=== PATIENT | male | born 1970 | race Caucasian/White ===

== ENCOUNTER → 2024-01-24 | Outpatient (CLI) | payer BC, SELFPAY ==
--- NOTE | 2024-01-24 10:27 | EKG12_ITS ---
Test Reason : PREOP Blood Pressure : / mmHG Vent. Rate : 067 BPM Atrial Rate : 067 BPM P-R Int : 140 ms QRS Dur : 090 ms QT Int : 398 ms P-R-T Axes : 057 -26 055 degrees QTc Int : 420 ms Normal sinus rhythm Normal ECG Confirmed by PHILIP DHALIWAL, SNEHAL ([id number]), editor news JUAN ALBERTO SAAVEDRA ([id number]) on 01/30/2024 10:03:03 AM Referred By: Kitty Casey Confirmed By:NAHOMI PALACIOS MD
[2024-01-24 11:02] LABS: Absolute Lymphocyte Count 2.07 X10^3/uL (0.83-4.51); Absolute Neutrophil Count 3.4 X10^3/uL (2.0-7.7); Basophil# 0.09 X10^3/uL; Basophil% 1.4 % (0-1); Eosinophil# 0.23 X10^3/uL; Eosinophils% 3.5 % (0-5); Hematocrit 45.8 % (40-54); Hemoglobin 15.3 g/dL (13.0-16.5); Lymphocyte # 2.07 X10^3/ul (0.83-4.51); Lymphocyte % 31.9 % (19-41); Mean Corp Hgb Conc 33.4 g/dL (32-36); Mean Corpuscular Hgb 29.8 pg (27.0-32.0); Mean Corpuscular Volume 89.3 fL (80-94); Mean Platelet Vol. 10.2 fl (6.2-12.0); Monocyte# 0.65 X10^3/uL; NRBC Flagged by Analyzer 0 % (0-5); Neutrophil # 3.41 X10^3/uL (2.7-7.7); Neutrophil % 52.7 % (47-70); Platelet Count 256 K/mm3 (150-450); RBC Distribution Width CV 12.1 % (11.6-14.6); RBC Distribution Width SD 39.2 fl (35.1-43.9); Red Blood Count 5.13 M/mm3 (4.6-6.2); White Blood Count 6.5 K/mm3 (4.4-11.0)
[2024-01-24 11:43] LABS: Anion Gap 3 (5-15); BUN 15 mg/dL (7-18); Calcium,Total 9.2 mg/dL (8.5-10.1); Chloride 105 mmol/L (98-107); Creatinine, Serum 1.15 mg/dL (0.70-1.30); EST Glomerular Filtration Rate 70 mL/min (>60); Est Glom Filt Rate - Afr Amer 85 mL/min (>60); Glucose 103 mg/dL (74-106); Potassium 4.4 mmol/L (3.5-5.1); Sodium Level 138 mmol/L (136-145)
--- OUTSIDE RECORDS SUMMARY | 2024-01-24 18:52 | XMS RPT_ITS | CCD ---
Author Name Unknown Address [facility] [place] [address] Organization [facility] Care Team Providers Care Toxicology Supervisor Name Role Phone Aniceto Conte MD Primary Care Provider ANICETO CONTE Primary Care Unavailable DALTON EPSTEIN Referring Unavailable ANICETO CONTE Referring Unavailable ANICETO CONTE Primary Care Unavailable DALTON EPSTEIN Attending Unavailable Medications Completed/Discontinued Medications Medication Drug Class(es) Dates Sig (Normalized) Sig (Original) halobetasol propionate 0.0005 mg/mg topical ointment (1 source) Corticosteroid Start: 05-18-2023 halobetasol propionate (ULTRAVATE) 0.05 % ointment Indications: Psoriasis Apply to affected area twice daily. 50 g 0 05/18/2023 Active Problems Active Problems Problem Classification Problem Date Documented Da te Episodic/Chronic Immunizations and screening for infectious disease (3 sources) Patient encounter status; Translations: [Encounter for immunization] Onset: 05-18-2023 Episodic Other connective tissue disease (1 source) Ganglion cyst; Translations: [Ganglion, unspecified site] Episodic Other connective tissue disease (1 source) Ganglion, unspecified site; Translations: [Ganglion cyst] Onset: 05-18-2023 Episodic Other inflammatory condition of skin (2 sources) Psoriasis; Translations: [Psoriasis, unspecified] Onset: 05-14-2011 Chronic Other inflammatory condition of skin (1 source) Psoriasis, unspecified; Translations: [Psoriasis] Onset: 11-23-2021 Chronic Other screening for suspected conditions (not mental disorders or infectious disease) (1 source) Encounter for screening for malignant neoplasm of colon; Translations: [Screening for colon cancer] Onset: 05-18-2023 Episodic Past or Other Problems Problem Classification Problem Date Documented Da te Episodic/Chronic Calculus of urinary tract (1 source) Kidney stone; Translations: [Calculus of kidney] Onset: 05-14-2011 11-23-2021 Episodic Residual codes; unclassified (1 source) Family history of ischemic heart disease; Translations: [Family history of ischemic heart disease and other diseases of the circulatory system] Onset: 05-14-2011 05-14-2011 Episodic Residual codes; unclassified (1 source) Tobacco use and exposure - finding; Translations: [Tobacco use] Onset: 05-14-2011 05-11-2018 Episodic Results Test Name Value Interpretation Reference Range Facil ity Vital Signs Date Time Vital Sign Value Performing Clinician Dennis danielle 05-18-2023 11:02-0400 Body height 178.5 cm Dalton Epstein APRN.YESENIA Work Phone: [facility] 05-18-2023 11:02-0400 Body weight 111.13 kg Dalton Epstein APRN.YESENIA Work Phone: [facility] 05-18-2023 11:02-0400 Diastolic blood pressure 84 mm[Hg] Dalton Epstein APRN.[facility] Work Phone: [facility] 05-18-2023 11:02-0400 Heart rate 71 /min Dalton Epstein APRN.[facility] Work Phone: [facility] 05-18-2023 11:02-0400 Respiratory rate 16 /min Dalton Epstein APRN.[facility] Work Phone: [facility] 05-18-2023 11:02-0400 SaO2% (BldA) [Mass fraction] 95 % Dalton Epstein [employer]ARD [employer]OR [employer].[facility] Work Phone: [facility] 05-18-2023 11:02-0400 Systolic blood pressure 128 mm[Hg] Dalton Epstein [employer]ARD [employer] Work Phone: [facility] Encounters Encounter Date Encounter Type Care Provider Facility Start: 05-18-2023 Encounter for noa kurtz adult medical examination without abnormal findings ANICETO CONTE [facility] Start: 05-18-2023 End: 05-19-2023 ambulatory ANICETO CONTE Facility:[facility] Start: 05-18-2023 End: 05-18-2023 Patient encounter procedure Dalton Epstein APRN.[facility] Work Phone: [facility] Plan of Treatment Date Care Activity Detail Author Start: 05-18-2033 Urine microalbumin profile DTA P,TDAP,TD (3 - Td or Tdap) [facility] Start: 05-18-2028 LIPID SCREEN LIPID SCREEN [facility] Start: 05-18-2026 DIABETES SCREEN DIABETES SCREEN [facility] Start: 05-18-2024 COVID-19 VACCINE (#1) COVID-19 VACCI NE (#1) [facility] Immunizations Immunization Date Immunization Notes Care Provider Fa cility 05-18-2023 tetanus toxoid, redu eda diphtheria toxoid, and acellular pertussis vaccine, adsorbed Dalton Haagen [employer].[facility] Work Phone: [facility] 08-28-2018 influenza, seasonal, injectable Dalton Haagen [employer]BOARD [employer]OR TE[employer].[facility] Work Phone: [facility] 05-14-2011 tetanus toxoid, redu eda diphtheria toxoid, and acellular pertussis vaccine, adsorbed Dalton Haagen [employer]BOARD [employer]OR TE[employer].[facility] Work Phone: [facility] Work Phone: 04-05-1978 chicken pox (disease) José Miguel meyers Hamatt [employer]BOARD [employer]OR [employer].[facility] Work Phone: [facility] Work Phone: Payers Date Payer Category Payer Unknown [employer] PPO [id number] 2020-Present [phone] [facility] [id number] [place] [address] PPO [id number] 2020 Unknown [id number] Social History Date Type Detail Facility Start: 05-18-2023 Tobacco smoking stat us AZIS Ex-smoker [facility] End: 05-11-2012 History of tobacco use Current smoker [facility] End: 05-11-2012 History of tobacco use Cigarette Smoker [facility] Start: 05-18-2023 Tobacco use and exposure User of smo keless tobacco [facility] History of tobacco use Chews Tobacco [facility] Start: 05-18-2023 Alcohol intake Current non-dr box chipper of alcohol (finding) [facility] Start: 1970 Sex Assigned At Not on file C [facility] Progress note 05-18-2023 Note Date & Type Note Facility 05-18-2023 Note HNO ID: [id number] Author: Dalton Epstein APRN.[facility] Service: ? Author Type: Nurse Practitioner Type: Progress Notes Filed: 05/19/2023 1:29 PM Note Text: This is a 53 year old male who presents today with: Patient presents with: Yearly Exam HISTORY OF PRESENT ILLNESS: Tiffany Hardy Jr. is a 53 year old male. Patient presents with: Yearly Exam Pt presents today for annual exam. Has been having trouble w/ psoriasis. Called in to see if he could have steroid cream that had previously ordered by dermatology refilled, and advised appt was needed. He reports overall healthy. REVIEW OF SYSTEMS GENERAL: No weight loss, malaise or fevers/chills HEENT: Negative for frequent or significant headaches, No changes in hearing or vision. NECK: Negative for lumps, goiter, pain and significant neck swelling RESPIRATORY: Negative for cough, hemoptysis, wheezing, dyspnea or shortness of breath CARDIOVASCULAR: Negative for chest pain, leg swelling, orthopnea, or palpitations GI: No nausea, vomiting, or diarrhea/constipation. No hematochezia/melena. No heartburn or reflux symptoms. No family hx of colon CA. : No history of dysuria, frequency or incontinence. MUSCULOSKELETAL: Negative for joint pain or swelling. SKIN: Negative for lesions, rash, and itching ENDOCRINE: Negative for cold or heat intolerance, polyuria, polydipsia and goiter NEURO: No history of headaches, syncope, paralysis, seizures or tremors PAST MEDICAL HISTORY: PAST MEDICAL HISTORY Diagnosis Date Psoriasis PAST SURGICAL HISTORY Procedure Laterality Date PAST SURGICAL HISTORY OF 11/28/1987 arthroscopic knee surgery (thinks was the right) PAST SURGICAL HISTORY OF age 1 or 2 Tonsils VASECTOMY Bilateral 1999 ALLERGIES Patient has no known allergies. MEDICATIONS Current Outpatient Medications Medication Sig OTC PRODUCT PLEXUS LINE: Biocleanse, Pro Bio, Vit E, and Multivitamin No current facility-administered medications for this visit. FAMILY HISTORY Problem Relation Age of Onset Coronary Artery Disease Father age 40's at onset Pancreatic Cancer Father Cancer Paternal Grandfather lung other (Cerabal Palsy) Son Social History Tobacco Use Smoking status: Former Years: 30.00 Types: Cigarettes Quit date: 05/11/2012 Years since quittin.0 Smokeless tobacco: Current Types: Chew Substance Use Topics Alcohol use: No EXAM: BP 128/84 Pulse 71 Resp 16 Ht 178.5 cm (5' 10.28 ) Wt 111.1 kg (245 lb) SpO2 95% BMI 34.88 kg/m? PHYSICAL EXAM: General Appearance: Well appearing, alert, in no acute distress, well-hydrated, well nourished.. Skin: Skin color, texture, turgor normal. Psoriatic lesions on the knees and left elbow. Suspected ganglion cyst at DIP of the left index finger. Head: Normocephalic, no masses, lesions, tenderness or abnormalities. Eyes: Anicteric sclera. Pupils are equally round and reactive to light. Extraocular movements are intact. . Ears: External ears normal, canals clear. Oropharynx: Lips, mucosa, and tongue normal, teeth and gums normal, oropharynx normal. Neck: Supple, no adenopathy; thyroid symmetric, normal size, no bruits. Lungs: Lungs clear to auscultation. No wheezing, rhonchi, rales.. Heart: RRR without murmur, gallop, or rubs. No ectopy. Abdomen: Abdomen soft, non-tender. Bowel sounds normal. No masses, organomegaly. Extremities: No deformities, edema, skin discoloration, clubbing or cyanosis. Good capillary refill. . Neurologic: Gait normal. ASSESSMENT/PLAN: 1. Wellness examination - ICD9: V70.0, ICD10: Z00.00 (primary diagnosis) - Counseled on healthy diet and regular exercise - Patient was counseled [id number] by myself (the billing provider) for the following immunizations and vaccine components, including side effects: TdaP. Patient consents for immunization and understands risks and benefits. A VIS sheet on each immunization was given to the patient. - Follow up for annual exam in one year - CBC + DIFF - COMP METABOLIC PANEL - LIPID PANEL, NONFASTING Shingrix encouraged -- check w/ insurance. 2. Screening for colon cancer - ICD9: V76.51, ICD10: Z12.11 Agreeable to cologuard. Discussed verifying coverage w/ insurance. - COLOG[employer]ARD 3. Encounter for immunization - ICD9: V03.89, ICD10: Z23 - TDAP VACCINE, AGE 7+ YR (ADACEL, BOOSTRIX) 4. Psoriasis - ICD9: 696.1, ICD10: L40.9 Refill: - HALOBETASOL PROPIONATE 0.05 % TOPICAL OINTMENT 5. Ganglion cyst - ICD9: 727.43, ICD10: M67.40 Not bothersome at this time. Notify provider of any worsening symptoms. Discussed treatment plan and patient voices understanding. Patient's questions answered appropriately. Medications and potential side effects were discussed and patient voices understanding. Return to the office as scheduled or as needed for worsening/no improvement. Dalton Epstein APRN.YESENIA [facility] History of Present illness Narrative 05-18-2023 Dalton Epstein APRN.YESENIA - 05/18/2023 11:05 AM EDT Note Date & Type Note Facility 05-18-2023 History of Presen t illness Narrative This is a 53 year old male who presents today with: Patient presents with: Yearly Exam HISTORY OF PRESENT ILLNESS: Tiffany Hardy Jr. is a 53 year old male. Patient presents with: Yearly Exam Pt presents today for annual exam. Has been having trouble w/ psoriasis. Called in to see if he could have steroid cream that had previously ordered by dermatology refilled, and advised appt was needed. He reports overall healthy. REVIEW OF SYSTEMS GENERAL: No weight loss, malaise or fevers/chills HEENT: Negative for frequent or significant headaches, No changes in hearing or vision. NECK: Negative for lumps, goiter, pain and significant neck swelling RESPIRATORY: Negative for cough, hemoptysis, wheezing, dyspnea or shortness of breath CARDIOVASCULAR: Negative for chest pain, leg swelling, orthopnea, or palpitations GI: No nausea, vomiting, or diarrhea/constipation. No hematochezia/melena. No heartburn or reflux symptoms. No family hx of colon CA. : No history of dysuria, frequency or incontinence. MUSCULOSKELETAL: Negative for joint pain or swelling. SKIN: Negative for lesions, rash, and itching ENDOCRINE: Negative for cold or heat intolerance, polyuria, polydipsia and goiter NEURO: No history of headaches, syncope, paralysis, seizures or tremors PAST MEDICAL HISTORY: PAST MEDICAL HISTORY Diagnosis Date Psoriasis PAST SURGICAL HISTORY Procedure Laterality Date PAST SURGICAL HISTORY OF 11/28/1987 arthroscopic knee surgery (thinks was the right) PAST SURGICAL HISTORY OF age 1 or 2 Tonsils VASECTOMY Bilateral 1999 ALLERGIES Patient has no known allergies. MEDICATIONS Current Outpatient Medications Medication Sig OTC PRODUCT PLEXUS LINE: Biocleanse, Pro Bio, Vit E, and Multivitamin No current facility-administered medications for this visit. FAMILY HISTORY Problem Relation Age of Onset Coronary Artery Disease Father age 40's at onset Pancreatic Cancer Father Cancer Paternal Grandfather lung other (Cerabal Palsy) Son Social History Tobacco Use Smoking status: Former Years: 30.00 Types: Cigarettes Quit date: 05/11/2012 Years since quittin.0 Smokeless tobacco: Current Types: Chew Substance Use Topics Alcohol use: No EXAM: BP 128/84 Pulse 71 Resp 16 Ht 178.5 cm (5' 10.28 ) Wt 111.1 kg (245 lb) SpO2 95% BMI 34.88 kg/m PHYSICAL EXAM: General Appearance: Well appearing, alert, in no acute distress, well-hydrated, well nourished.. Skin: Skin color, texture, turgor normal. Psoriatic lesions on the knees and left elbow. Suspected ganglion cyst at DIP of the left index finger. Head: Normocephalic, no masses, lesions, tenderness or abnormalities. Eyes: Anicteric sclera. Pupils are equally round and reactive to light. Extraocular movements are intact. . Ears: External ears normal, canals clear. Oropharynx: Lips, mucosa, and tongue normal, teeth and gums normal, oropharynx normal. Neck: Supple, no adenopathy; thyroid symmetric, normal size, no bruits. Lungs: Lungs clear to auscultation. No wheezing, rhonchi, rales.. Heart: RRR without murmur, gallop, or rubs. No ectopy. Abdomen: Abdomen soft, non-tender. Bowel sounds normal. No masses, organomegaly. Extremities: No deformities, edema, skin discoloration, clubbing or cyanosis. Good capillary refill. . Neurologic: Gait normal. ASSESSMENT/PLAN: 1. Wellness examination - ICD9: V70.0, ICD10: Z00.00 (primary diagnosis) - Counseled on healthy diet and regular exercise - Patient was counseled [id number] by myself (the billing provider) for the following immunizations and vaccine components, including side effects: TdaP. Patient consents for immunization and understands risks and benefits. A VIS sheet on each immunization was given to the patient. - Follow up for annual exam in one year - CBC + DIFF - COMP METABOLIC PANEL - LIPID PANEL, NONFASTING Shingrix encouraged -- check w/ insurance. 2. Screening for colon cancer - ICD9: V76.51, ICD10: Z12.11 Agreeable to cologuard. Discussed verifying coverage w/ insurance. - [employer]ARD 3. Encounter for immunization - ICD9: V03.89, ICD10: Z23 - TDAP VACCINE, AGE 7+ YR (ADACEL, BOOSTRIX) 4. Psoriasis - ICD9: 696.1, ICD10: L40.9 Refill: - HALOBETASOL PROPIONATE 0.05 % TOPICAL OINTMENT 5. Ganglion cyst - ICD9: 727.43, ICD10: M67.40 Not bothersome at this time. Notify provider of any worsening symptoms. Discussed treatment plan and patient voices understanding. Patient's questions answered appropriately. Medications and potential side effects were discussed and patient voices understanding. Return to the office as scheduled or as needed for worsening/no improvement. Dalton Epstein APRN.YESENIA documented in this encounter [facility] Evaluation note Note Date & Type Note Facility documented in this encounter [facility] Summary Purpose Family History No Family History Records Found Advance Directives No Advanced Directives Records Found Additional Source Comments Source Comments (unrecognize d section and content) In the event this informatio n is protected by the Federal Confidentiality of Alcohol and Drug Abuse Patient Records regulations: The Federal rules restrict any use of the information to criminally investigate or prosecute any alcohol or drug abuse patient.[facility] Reason for Visit (unrecogniz ed section and content) Care Teams (unrecognized sec tion and content) (unrecognized sect ion and content) No Status Records Found INFORMATION SOURCE (unrecogn ized section and content) FOR RECORDS PERTAINING TO PATIENTS WHO ARE OR HAVE BEEN ENROLLED IN A CHEMICAL DEPENDENCY/SUBSTANCEABUSE PROGRAM, SOME INFORMATION MAY BE OMITTED. This clinical summary was aggregated from multiple sources. Caution should be exercised in using it in the provision of clinical care. This summary normalizes information from multiple sources, and as a consequence, information in this document may materially change the coding, format and clinical context of patient data. In addition, data may be omitted in some cases. CLINICAL DECISIONS SHOULD BE BASED ON THE PRIMARY CLINICAL RECORDS. [facility] [employer] provides no warranty or guarantee of the accuracy or completeness of information in this document.
== END | disposition home or self-care (01) ==
PROVIDERS: PCP Optometrist; Referring Provider Physician Assistant Surgical; Visit Provider Physician Assistant Surgical
DX: Z01.818 Encounter for other preprocedural examination (principal)
CPT/HCPCS: 36415; 80048; 85025; 93005